=== PATIENT | male | born 1975 | race Caucasian/White ===

== ENCOUNTER 2016-10-10 05:53 | Emergency (ER) | payer OTHER ==
[~2016-10-10] VITALS: Ht 177.8 cm; Wt 122.5 kg
--- NOTE | 2016-10-10 07:00 | EKG ---
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
[2016-10-10] MEDS: IPRATRPIUM/ALBUTEROL 0.5/2.5MG 3 ML NEBU. NEB ONE (07:08)
[2016-10-10 07:11] LABS: BASO % 1 % (0-3); EOS % 0 % (0-3); HEMATOCRIT 49.7 % (39.0-53.0); HEMOGLOBIN 17.4 g/dL (13.0-17.5); LYMPH # 0.4 x10^3/uL (1.0-4.8); LYMPH % 6 % (24-48); MEAN CORPUSCULAR HEMOGLOBIN 31 pg (25-35); MEAN CORPUSCULAR HGB CONC 35 g/dL (31-37); MEAN CORPUSCULAR VOLUME 88 fL (79-100); MONO # 0.6 x10^3/uL (0.0-1.1); MONO % 9 % (0-9); NEUT # 5.5 x10^3uL (1.8-7.7); NEUT % 84 % (31-73); PLATELET COUNT 191 x10^3/uL (140-400); RED BLOOD COUNT 5.68 x10^6/uL (4.30-5.70); RED CELL DISTRIBUTION WIDTH 14.3 % (11.5-14.5); WHITE BLOOD COUNT 6.6 x10^3/uL (4.0-11.0)
[2016-10-10] MEDS: methylPREDNISolone SOD SUCC PF 125 MG/2 ML VIAL. IV ONE (07:20)
[2016-10-10] MEDS: IV NORMAL SALINE 1,000ML 1,000 ML IV SCH (07:25)
--- NOTE | 2016-10-10 07:31 | PHYS DOC ---
General Chief Complaint: SHORTNESS OF BREATH Stated Complaint: SOA ,DIZZY Time Seen by MD: 06:13 Source: patient Exam Limitations: no limitations Problems: History of Present Illness Initial Comments Pt is 41/M to ED c/o sob. Pt states he's been ill with nonproductive cough, SOB, malaise, and dizziness since Saturday. He's had some chills/sweats, no measured temps. No h/o asthma, no prior COPD or other chronic respiratory diagnosis. 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 Recent exposure to sick child with "respiratory illness." Strong FH CAD, pt with no prior cardiac workup. Did not take BP meds this am, takes lisinopril/HCTZ 20/12.5, lisinopril 20mg PO given. ED VS: 100, 131, 40, 161/115, 89% RA placed on 2L O2 NC Timing/Duration: getting worse (2 days) Severity: severe Modifying Factors: worse with movement, improves with rest Associated Symptoms: fever/chills, malaise, shortness of breath Allergies: Coded Allergies: No Known Allergies (Verified Allergy, Unknown, 10/10/16) Past Medical History Medical History: high cholesterol, hypertension Surgical History: noncontributory Social History Smoker: cigarettes Alcohol: none Drugs: none Review of Systems Constitutional: see HPI EENTM: nose congestiondenies throat swelling Respiratory: see HPI Cardiovascular: denies chest pain, denies palpitations, denies syncope Gastrointestinal: denies abdominal pain, denies diarrhea, denies nausea, denies vomiting Genitourinary: denies dysuria, denies frequency, denies hematuria Musculoskeletal: denies back pain, denies joint swelling, denies neck pain Psychiatric/Neurological: headachedenies numbness, denies paresthesia, denies tingling, denies weakness Hematologic/Lymphatic: denies blood clots, denies easy bleeding, denies easy bruising Physical Exam General Appearance: mild distress, obese Eyes: bilateral eye EOMI, bilateral eye PERRL, bilateral eye normal inspection Ear, Nose, Throat: hearing grossly normal, normal ENT inspection, normal pharynx Neck: non-tender, supple Respiratory: chest non-tender, respiratory distress, decreased breath sounds, wheezing Cardiovascular: normal peripheral pulses, tachycardia Gastrointestinal: non tender, soft Back: no CVA tenderness, no vertebral tenderness Extremities: normal range of motion, non-tender, normal inspection 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 Critical Troponin called 0.169 , d-dimer 0.90. I discussed this with pt as well as need for cardiology evaluation. Pt states he has animals at home he has to care for and will refuse admission. He is agreeable to stay for completion of testing. I discussed risks/benefits of staying vs leaving, risks being worsening of condition, loss of quality of life/. EKG: sinus tachycardia 130 bpm, no STEMI WBC 6.6, CK 371, BNP 314, Influenza B + PATIENT: STANLEY CARLIN ACCOUNT: [id number] : 1975 LOCATION: ER AGE: 41 SEX: M EXAM STATUS: REG ER ORD. PHYSICIAN: TERRI DEAN DO REASON: sob PROCEDURE: CHEST PA & LATERAL Chest, 2 views, 10/10/2016: History: Shortness of breath Comparison is made to a study from 12/11/2010. The heart is within normal limits in size. There are faint patchy bilateral pulmonary infiltrates. There is no evidence of pleural fluid. The fissures are slightly prominent. The bony structures are unremarkable. IMPRESSION: Faint patchy bilateral pulmonary infiltrates suggesting pneumonia. DICTATED AND SIGNED BY: TANYA GOLDSTEIN MD DATE: 10/10/16 0837 CC: TATIANA ARCE MD; TERRI DEAN DO ~ PATIENT: STANLEY CARLIN ACCOUNT: [id number] : 1975 LOCATION: ER AGE: 41 SEX: M EXAM STATUS: REG ER ORD. PHYSICIAN: TERRI DEAN DO REASON: cp, sob/tachycardia, elev d-dimer PROCEDURE: CTA CHEST CT of the chest with contrast, 10/10/2016: History: Elevated d-dimer, shortness of breath Multidetector CT imaging was performed following an IV bolus injection of iodinated contrast material. Multiplanar reconstructions were produced including coronal MIP images. The main and lobar pulmonary arteries are well opacified and no filling defects are seen. Some of the smaller pulmonary arteries are less well opacified due to technical factors. No definite pulmonary emboli are seen. The thoracic aorta is of normal caliber. Moderate scattered coronary artery calcifications are present. There are mildly enlarged mediastinal lymph nodes, best seen in the subcarinal region. The largest subcarinal node demonstrates a short axis dimension of 16 mm. No definite hilar adenopathy is seen. There are calcified lymph nodes at the right hilum. There are patchy bilateral pulmonary opacities. Some of these represent faint groundglass opacities. Other opacities demonstrate a tree-in-bud type configuration. This pattern is most prominent in the left lower lobe. No central bronchial obstruction or bronchiectasis is seen. There is no evidence of pleural fluid. The liver is of lower than normal density suggesting hepatic steatosis. IMPRESSION: 1. No CT evidence of central pulmonary emboli. 2. Patchy bilateral pulmonary infiltrates as described above, most likely representing pneumonia which may be on an infectious or hypersensitivity basis. This pattern is not typical of pulmonary edema. 3. Mild mediastinal adenopathy. 4. Coronary artery calcifications. 5. Hepatic steatosis. PQRS Compliance Statement: One or more of the following individualized dose reduction techniques were utilized for this examination: 1. Automated exposure control 2. Adjustment of the mA and/or kV according to patient size 3. Use of iterative reconstruction technique DICTATED AND SIGNED BY: TANYA GOLDSTEIN MD DATE: 10/10/16 0849 CC: TATIANA ARCE MD; TERRI DEAN DO ~ I reiterated need for inpatient treatment, I discussed results and risks/ benefits of staying vs leaving AMA. Pt will sign out AMA. Will treat with prednisone, tamiflu, albuterol, guaif/cod. Will add zithromax, as XR/CT indicates pneumonia (likely reflective of influenza). Pt understands he may return at any time. Departure Time of Disposition: 09:15 Disposition: 07 AGAINST MEDICAL ADVICE Diagnosis: Respiratory Distress, Influenza B, Elev Troponin, Condition: GUARDED Patient Instructions: Discharge Against Medical Advice, Influenza, Adult, Pneumonia, Adult, Smoking Cessation Additional Instructions: As discussed, you have chosen to sign out Against Medical Advice. Risks of leaving AMA potentially include worsening of condition, loss of quality of life, and . You may return for further evaluation and treatment at any time. Stop smoking, seek medical assistance if necessary. Off work thru 10/13. Rest, no strenuous activity. Aggressive hydration with gatorade, water. OTC tylenol as needed. Rx: tamiflu, zithromax, albuterol, prednisone, guaif/cod Follow up with your doctor next available for recheck of symptoms and labs. Return to ED as needed. TERRI DEAN DO Oct 10, 2016 07:31
[2016-10-10 07:33] LABS: ALBUMIN 3.8 g/dL (3.4-5.0); CALCIUM 8.5 mg/dL (8.5-10.1); CREATININE 0.9 mg/dL (0.7-1.3); GFR 92.5; POTASSIUM 3.8 mmol/L (3.5-5.1); TOTAL BILIRUBIN 0.5 mg/dL (0.2-1.0); TOTAL PROTEIN 7.7 g/dL (6.4-8.2)
[2016-10-10 07:40] LABS: METHEMOGLOBIN 0.6 % (0.0-1.9)
[2016-10-10] MEDS: ASPIRIN 81 MG TAB.CHEW PO ONE (07:41)
[2016-10-10] MEDS: LISINOPRIL 5 MG TABLET. PO ONE (07:42)
--- NOTE | 2016-10-10 08:01 | EKG ---
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
[2016-10-10 08:04] LABS: INFLUENZA A PATIENT NEGATIVE (NEGATIVE); INFLUENZA B PATIENT POSITIVE (NEGATIVE)
[2016-10-10] MEDS: IOHEXOL 300 MG/ML 75 ML VIAL. IV ONE (08:21)
[2016-10-10] MEDS ORDERED: OSELTAMIVIR 75 MG CAPSULE PO ONE (08:30)
--- NOTE | 2016-10-10 08:43 | RAD ---
Chest, 2 views, 10/10/2016: History: Shortness of breath Comparison is made to a study from 12/11/2010. The heart is within normal limits in size. There are faint patchy bilateral pulmonary infiltrates. There is no evidence of pleural fluid. The fissures are slightly prominent. The bony structures are unremarkable. IMPRESSION: Faint patchy bilateral pulmonary infiltrates suggesting pneumonia.
[2016-10-10 09:03] LABS: BARBITURATES NEG (NEG); BENZODIAZEPINES NEG (NEG); CANNABINOIDS NEG (NEG); COCAINE NEG (NEG); METHADONE NEG (NEG); OPIATES NEG (NEG); PHENCYCLIDINE NEG (NEG)
--- NOTE | 2016-10-10 09:07 | RAD ---
CT of the chest with contrast, 10/10/2016: History: Elevated d-dimer, shortness of breath Multidetector CT imaging was performed following an IV bolus injection of iodinated contrast material. Multiplanar reconstructions were produced including coronal MIP images. The main and lobar pulmonary arteries are well opacified and no filling defects are seen. Some of the smaller pulmonary arteries are less well opacified due to technical factors. No definite pulmonary emboli are seen. The thoracic aorta is of normal caliber. Moderate scattered coronary artery calcifications are present. There are mildly enlarged mediastinal lymph nodes, best seen in the subcarinal region. The largest subcarinal node demonstrates a short axis dimension of 16 mm. No definite hilar adenopathy is seen. There are calcified lymph nodes at the right hilum. There are patchy bilateral pulmonary opacities. Some of these represent faint groundglass opacities. Other opacities demonstrate a tree-in-bud type configuration. This pattern is most prominent in the left lower lobe. No central bronchial obstruction or bronchiectasis is seen. There is no evidence of pleural fluid. The liver is of lower than normal density suggesting hepatic steatosis. IMPRESSION: 1. No CT evidence of central pulmonary emboli. 2. Patchy bilateral pulmonary infiltrates as described above, most likely representing pneumonia which may be on an infectious or hypersensitivity basis. This pattern is not typical of pulmonary edema. 3. Mild mediastinal adenopathy. 4. Coronary artery calcifications. 5. Hepatic steatosis. PQRS Compliance Statement: One or more of the following individualized dose reduction techniques were utilized for this examination: 1. Automated exposure control 2. Adjustment of the mA and/or kV according to patient size 3. Use of iterative reconstruction technique
[2016-10-10 09:08] LABS: BILIRUBIN,URINE NEG (NEG); CLARITY,URINE CLEAR; COLOR,URINE AMBER; GLUCOSE,URINE NEG (NEG)
[2016-10-10 09:09] LABS: BACTERIA,URINE 0 /HPF (0-FEW); NITRITE,URINE NEG (NEG); SQUAMOUS EPITHELIAL CELL,UR OCC /LPF; UROBILINOGEN,URINE 1 mg/dL (0.2 mg/dL); WBC,URINE RARE /HPF (0-4)
[2016-10-10 09:10] LABS: AMPHETAMINE/METHAMPHETAMINE NEG (NEG)
[2016-10-10] MEDS ORDERED: PRED20TA PO (09:22)
[2016-10-10] MEDS ORDERED: AZIT250T PO (09:22)
[2016-10-10] MEDS ORDERED: OSEL75CA PO (09:22)
[2016-10-10] MEDS ORDERED: ALBU18HF IH (09:22)
[2016-10-10] MEDS ORDERED: GUAI118L13 PO (09:22)
[2016-10-10 09:45] VITALS: BP 182/113
== END 2016-10-10 09:45 | disposition left against medical advice (07) ==
LOC: ER 06:01
DX: J10.1 Influenza due to other identified influenza virus with other respiratory manifestations (principal); R06.00 Dyspnea, unspecified; R51 Headache; R42 Dizziness and giddiness; E78.00 Pure hypercholesterolemia, unspecified; I10 Essential (primary) hypertension; F17.210 Nicotine dependence, cigarettes, uncomplicated
CPT/HCPCS: 36415; 36600; 71020; 71275; 80053; 80305; 80320; 81001; 82550; 82805; 83880; 84484; 85027; 85379; 87804; 93005; 94640; 96361; 96374; 99285; J2930; J7620; Q9967; G0480; G0481; J7030